=== PATIENT | female | born 1995 | race Caucasian/White ===

== ENCOUNTER 2019-01-22 20:42 | Emergency (ER) | payer OTHER ==
[~2019-01-22] VITALS: Ht 149.9 cm; Wt 86.7 kg
[2019-01-22] MEDS ORDERED: ACETAMINOPHEN 325 MG TABLET PO ONE (23:30)
[2019-01-22] MEDS ORDERED: ACETAMINOPHEN ES 500 MG TABLET ONE (23:39)
--- NOTE | 2019-01-22 23:44 | NUR ---
Patient discharged to home in stable condition. Written and verbal after care instructions given. Patient verbalizes understanding of instruction.
[2019-01-23 02:10] VITALS: BP 112/68
== END 2019-01-23 02:11 | disposition home or self-care (01) ==
LOC: ER 20:45
DX: S63.591A Other specified sprain of right wrist, initial encounter (principal); S63.692A Other sprain of right middle finger, initial encounter; J45.909 Unspecified asthma, uncomplicated; Z88.6 Allergy status to analgesic agent; W01.0XXA Fall on same level from slipping, tripping and stumbling without subsequent striking against object, initial encounter; Y93.89 Activity, other specified; Y92.89 Other specified places as the place of occurrence of the external cause; Y99.8 Other external cause status
CPT/HCPCS: 29125; 29130; 73110; 73130; 99283; L3763

== ENCOUNTER 2019-04-19 09:36 | Emergency (ER) | payer OTHER ==
[~2019-04-19] VITALS: Ht 149.9 cm; Wt 83.9 kg
--- NOTE | 2019-04-19 11:10 | NUR ---
PT ENDORSED TO ME BY BENJAMÍN RAMOS
--- NOTE | 2019-04-19 11:13 | NUR ---
R ANKLE PAIN/SWELLING S/P FALL AT 0800, -HEAD TRAUMA. SWELLING IS MINIMAL. STATES PAIN LEVEL OF 10/10 AND SHARP. NO OTHER COMPLAINTS AT THIS TIME. FRIEND AT BEDSIDE, MADE COMFORTABLE, AND READY FOR EVAL.
[2019-04-19] MEDS ORDERED: MORPHINE SULFATE INJ 4 MG/ML DISP.SYRIN ONE (11:21)
[2019-04-19] MEDS ORDERED: MORPHINE SULFATE INJ 2 MG/ML DISP.SYRIN ONE (11:21)
[2019-04-19] MEDS ORDERED: MORPHINE SULFATE INJ 10 MG/ML DISP.SYRIN IM ONE (11:30)
--- NOTE | 2019-04-19 11:50 | NUR ---
PT SIGNED WAIVER. PLACED IN CHART
--- NOTE | 2019-04-19 11:55 | NUR ---
DR RENE AT BEDSIDE
--- NOTE | 2019-04-19 12:02 | NUR ---
YARD SUPERVISOR AT BEDSIDE FOR SPLINT APPLICATION
--- NOTE | 2019-04-19 12:50 | NUR ---
Patient discharged to home in stable condition. Written and verbal after care instructions given. Patient verbalizes understanding of instruction.
[2019-04-19 12:59] VITALS: BP 116/86
== END 2019-04-19 12:50 | disposition home or self-care (01) ==
LOC: ER 09:36
DX: S93.491A Sprain of other ligament of right ankle, initial encounter (principal); J45.909 Unspecified asthma, uncomplicated; W10.8XXA Fall (on) (from) other stairs and steps, initial encounter; Y93.01 Activity, walking, marching and hiking; Y92.89 Other specified places as the place of occurrence of the external cause; Y99.8 Other external cause status
CPT/HCPCS: 29515; 73590; 73610; 96372; 99283; J2270 ×2

== ENCOUNTER 2019-07-11 19:52 | Emergency (ER) | payer OTHER ==
[~2019-07-11] VITALS: Ht 149.9 cm; Wt 89.4 kg
[2019-07-11 20:14] VITALS: BP 156/94
[2019-07-11] MEDS ORDERED: ACETAMINOPHEN ES 500 MG TABLET PO ONE (21:30)
[2019-07-11] MEDS ORDERED: ACETAMINOPHEN ES 500 MG TABLET ONE (21:35)
== END 2019-07-11 21:43 | disposition home or self-care (01) ==
LOC: ER 19:56
DX: J02.0 Streptococcal pharyngitis (principal); J45.909 Unspecified asthma, uncomplicated; Z88.6 Allergy status to analgesic agent

== ENCOUNTER 2019-09-27 23:17 | Emergency (ER) | payer OTHER ==
[~2019-09-27] VITALS: Ht 149.9 cm; Wt 86.2 kg
[2019-09-27 23:38] VITALS: BP 111/80
--- NOTE | 2019-09-27 23:49 | NUR ---
BIBFAMILY FROM HOME TO ER BED 10. AAOX4. NO RESP DISTRESS NOTED. C/O R ANKLE PAIN S/P INVERSION. PT REPORTS PAIN 8/10 SHARP. NOTED SWELLING W/ LIMITED ROM ON THE R ANKLE D/T PAIN. SENSATION ARE FELT. ICE PACK PROVIDED AND LEG ELEVATED. AWAITING MD FOR EVAL.
--- NOTE | 2019-09-28 00:31 | NUR ---
Patient discharged to home in stable condition. Written and verbal after care instructions given. Patient verbalizes understanding of instruction.
== END 2019-09-28 00:31 | disposition home or self-care (01) ==
LOC: ER 23:23
DX: S93.491A Sprain of other ligament of right ankle, initial encounter (principal); J45.909 Unspecified asthma, uncomplicated; Z88.6 Allergy status to analgesic agent; W01.0XXA Fall on same level from slipping, tripping and stumbling without subsequent striking against object, initial encounter; Y93.89 Activity, other specified; Y92.090 Kitchen in other non-institutional residence as the place of occurrence of the external cause; Y99.8 Other external cause status
CPT/HCPCS: 73610-TC

== ENCOUNTER 2021-06-18 18:50 | Emergency (ER) | payer OTHER ==
[~2021-06-18] VITALS: Ht 149.9 cm; Wt 94.8 kg
--- NOTE | 2021-06-18 21:39 | NUR ---
called donato to have foot ct read
--- NOTE | 2021-06-18 22:15 | NUR ---
Patient discharged to home in stable condition. Written and verbal after care instructions given. Patient verbalizes understanding of instruction. pt ambulatory with a steady gait
[2021-06-18 22:31] VITALS: BP 126/66
== END 2021-06-18 22:31 | disposition home or self-care (01) ==
LOC: ER 18:55
DX: M79.672 Pain in left foot (principal); J45.909 Unspecified asthma, uncomplicated; Z88.6 Allergy status to analgesic agent
CPT/HCPCS: 73610-TC; 73630-TC; 73700-TC

== ENCOUNTER 2021-10-03 12:20 | Emergency (ER) | payer OTHER ==
[~2021-10-03] VITALS: Ht 149.9 cm; Wt 88.5 kg
[2021-10-03 12:23] VITALS: BP 137/92
--- NOTE | 2021-10-03 12:25 | NUR ---
AT BEDSIDE FOR EVAL.
--- NOTE | 2021-10-03 12:38 | NUR ---
RAPID STREP SWAB DONE AND SENT TO LAB
[2021-10-03] MEDS ORDERED: AMOX-430 PO ×2 (12:40→12:51)
[2021-10-03] MEDS ORDERED: DEXAMETHASONE SOD PHOSPHATE 10 MG/ML VIAL ONE (12:44)
--- NOTE | 2021-10-03 12:56 | NUR ---
Patient discharged to home in stable condition. Written and verbal after care instructions given. Patient verbalizes understanding of instruction.
[2021-10-03] MEDS ORDERED: DEXAMETHASONE SOD PHOSPHATE 10 MG/ML VIAL IM ONE (13:00)
== END 2021-10-03 12:57 | disposition home or self-care (01) ==
LOC: ER 12:43
DX: J02.9 Acute pharyngitis, unspecified (principal); R59.0 Localized enlarged lymph nodes; J45.909 Unspecified asthma, uncomplicated; Z88.6 Allergy status to analgesic agent
CPT/HCPCS: 87070; 87880; 96372; 99283; J1100; 86403-TC